=== PATIENT | female | born 2000 | race Caucasian/White ===

== ENCOUNTER 2023-02-27 09:42 | Outpatient (CLI) | payer BC ==
[2023-02-27 10:48] LABS: Hematocrit 40.1 % (34.9-44.5)
[2023-02-27 11:01] LABS: BHCG - Serum Negative (NEGATIVE)
[2023-02-27 11:02] LABS: Pregs Control Background? CLEAR/WHITE (CLR/WHITE); Pregs Control Bar Appear? YES (CONTROL BAR)
== END 2023-02-27 09:43 | disposition home or self-care (01) ==
LOC: CSHLAB 09:42
PROVIDERS: ATTEND Otolaryngology
DX: Z01.812 Encounter for preprocedural laboratory examination (principal); J03.91 Acute recurrent tonsillitis, unspecified; J34.3 Hypertrophy of nasal turbinates
CPT/HCPCS: 84703; 85014

== ENCOUNTER 2023-07-11 09:48 | Outpatient (CLI) | payer BC ==
[2023-07-11 10:30] LABS: Hematocrit 37.6 % (34.9-44.5)
[2023-07-11 11:13] LABS: BHCG - Serum Negative (NEGATIVE); Pregs Control Bar Appear? YES (CONTROL BAR)
[2023-07-11 11:14] LABS: Pregs Control Background? CLEAR/WHITE (CLR/WHITE)
== END 2023-07-11 09:49 | disposition home or self-care (01) ==
LOC: CSHLAB 09:48
PROVIDERS: ATTEND Otolaryngology
DX: Z01.812 Encounter for preprocedural laboratory examination (principal); J03.91 Acute recurrent tonsillitis, unspecified; J34.3 Hypertrophy of nasal turbinates
CPT/HCPCS: 84703; 85014